=== PATIENT | female | born 1940 | race Caucasian/White ===

== ENCOUNTER 2018-04-09 07:15 | Inpatient (IN) | payer MEDICARE, MEDICAID ==
[2018-04-03 15:09] LABS: BASOPHILS % (AUTO) 0.5 % (0-1); EOSINOPHILS # (AUTO) 0.1 X10'3 (0-0.9); EOSINOPHILS % (AUTO) 1.1 % (0-6); LYMPHOCYTES # (AUTO) 2.3 X10'3 (1.1-4.8); LYMPHOCYTES % (AUTO) 27.1 % (21-51); MEAN CORPUSCULAR HEMOGLOBIN 29.4 PG (27.0-31.0); MEAN CORPUSCULAR HGB CONC 33.4 % (33.0-36.5); MEAN CORPUSCULAR VOLUME 88.2 FL (78-98); MEAN PLATELET VOLUME 8.8 FL (7.4-10.4); MONOCYTES # (AUTO) 0.7 X10'3 (0-0.9); MONOCYTES % (AUTO) 8.2 % (2-12); NEUTROPHILS # (AUTO) 5.5 X10'3 (1.8-7.7); NEUTROPHILS % (AUTO) 63.1 % (42-75); PRE OP HEMATOCRIT 40.1 % (35.0-45.0); PRE OP HEMOGLOBIN 13.4 g/dL (12.0-16.0); PRE OP PLATELET COUNT 311 X10'3 (140-440); RED BLOOD COUNT 4.55 X10'6 (4.20-5.60); RED CELL DISTRIBUTION WIDTH 13.8 % (11.5-14.5)
[2018-04-03 15:13] LABS: PRE OP INR 1.1 INR; PRE OP PROTIME 10.9 SECONDS (9.0-12.0)
[2018-04-03 15:14] LABS: CLARITY,URINE CLEAR (Clear); COLOR,URINE YELLOW (Yellow); GLUCOSE, URINE NEGATIVE (Neg); KETONES,URINE NEGATIVE (Neg); LEUKOCYTE ESTERASE ,URINE NEGATIVE (Neg); NITRITES, URINE NEGATIVE (Neg); OCCULT BLOOD,URINE NEGATIVE (Neg); PH,URINE 5.5 (4.8-8.0); PROTEIN,URINE NEGATIVE (Neg); UROBILINOGEN,URINE 0.2 E.U/dL (0.2-1.0)
[2018-04-03 15:18] LABS: ALBUMIN 3.7 G/DL (3.4-5.0); ALBUMIN/GLOBULIN RATIO 0.9 (1.1-1.5); ALKALINE PHOSPHATASE 70 IU/L (46-116); BLOOD UREA NITROGEN 17 MG/DL (7-18); CALCIUM 8.8 MG/DL (8.5-10.1); CHLORIDE 101 MMOL/L (99-107); CREATININE 0.85 MG/DL (0.40-0.90); PRE OP ALT 22 U/L (30-65); PRE OP ANION GAP 11 (8-16); PRE OP AST 15 U/L (10-37); PRE OP BILIRUB, TOTAL 0.4 MG/DL (0.0-1.0); PRE OP GLUCOSE 110 MG/DL (70-104); PRE OP POTASSIUM 3.8 MMOL/L (3.4-5.1); PRE OP SODIUM 138 MMOL/L (135-145); TOTAL CARBON DIOXIDE 26.5 MMOL/L (24-32); TOTAL PROTEIN 7.8 G/DL (6.4-8.2); eGFR 65 ML/MIN
[2018-04-03 15:20] LABS: UA COLLECTION TYPE CLN CATCH MIDSTREAM
[2018-04-09] VITALS (19 sets, daily range): BP systolic 77–142; BP diastolic 42–83
[~2018-04-09] VITALS: Ht 165.1 cm; Wt 74.0 kg
[~2018-04-09 07:15] MED LIST: ACET-2119 PO; ALPH100C PO; ASCO1CAP4 PO; ASPI-1265 PO; BETA1TAB18 PO; BIOT10004 PEG; CALCIUM PO; CHOL10002 PO; DILT180C66 PO; FLAX100015 PO; GINK60TA2 PO; GLUC-133 PO; HYDROcodone/acetaminophen 10/325mg tab PO PRN; HYDROmorphone 1 mg/ml syringe IV PRN; IBUP-1984 PO; MAGN400C PO; MULT-933 PO; POTASSIUM PO; TURMERIC/CURCUMIN PO; VANCOMYCIN INJ 1000 MG in NORMAL SALINE 250ml IV.SOLN IV ONE; VITA100D6 PO; VITA100T PO; [UNRECOGNIZED DRUG - CODE] PO; [UNRECOGNIZED DRUG - OTHER] EACHEYE; [UNRECOGNIZED DRUG - OTHER] PO; acetaminophen 325mg tablet PO ONE; acetaminophen 325mg tablet PO PRN; bisacodyl 10mg suppository rectal RC PRN; cefazolin/dext.iso 2gm/100 ML IV ONE; celeCOXIB 100mg capsule PO ONE; diphenhydrAMINE 25mg capsule PO PRN; famotidine 20mg tablet PO ONE; gabapentin 300mg capsule PO ONE; magnesium hydroxide 30ml (MOM) UD suspension PO PRN; metoclopramide 5 mg/ml inj IV ONE; ondansetron/PF 4mg/2ml inj IV PRN; oxyCODONE SR 10mg (sust. release) tab -2 tabs (20mg) PO ONE; ringers solution, lacted 1,000 ML IV SCH; tranexamic acid inj. 1,000 MG in normal saline 100ml IV soln 90 ML IV ONE
[2018-04-09] MEDS ORDERED: tetracaine 1% (10mg/ml) pres. free inj. ONE (08:42)
[2018-04-09] MEDS ORDERED: DILT60TA41 PO (09:34)
[2018-04-09] MEDS ORDERED: ROPIVAcaine inj 250 MG, ketorolac tromethamine inj. 15 MG, CloNIDine/PF inj 80 MCG, epi... IU ONE ×5 (10:00)
[2018-04-09] MEDS ORDERED: vancomycin 1,000mg inj ONE (10:02)
[2018-04-09] MEDS ORDERED: fentaNYL/PF 50MCG/1 ML 2ML syringe ONE (10:08)
[2018-04-09] MEDS ORDERED: MIDAZolam 1mg/ml 10ml vial ONE (10:08)
[2018-04-09] MEDS ORDERED: morphine /PF 1mg/ml 10ml inj. ONE (10:09)
[2018-04-09] MEDS ORDERED: propofol inj 20 ML IV ONE (10:32)
[2018-04-09] MEDS ORDERED: LIDOcaine 2% (20mg/ml) 5ml vial ONE (10:33)
[2018-04-09] MEDS ORDERED: ringers solution, lacted 1,000 ML IV SCH (10:59)
[2018-04-09] MEDS ORDERED: hydrALAZINE 20mg/ml inj. IV PRN (11:00)
[2018-04-09] MEDS ORDERED: labetalol 20mg/4ml (5mg/ml) syringe IV PRN (11:00)
[2018-04-09] MEDS ORDERED: ondansetron/PF 4mg/2ml inj IV PRN ×2 (11:00→11:05)
[2018-04-09] MEDS ORDERED: fentaNYL/PF 50MCG/1 ML 2ML syringe IV PRN ×2 (11:00)
[2018-04-09] MEDS ORDERED: morphine 4 MG/ML inj SYRINge IV PRN ×2 (11:00)
[2018-04-09] MEDS ORDERED: diphenhydrAMINE 50 mg/ml inj IV PRN (11:05)
[2018-04-09] MEDS ORDERED: ePHEDrine 50MG/ML INJ. IV ONE (11:50)
[2018-04-09] MEDS ORDERED: ePHEDrine 50MG/ML INJ. ONE (12:04)
[2018-04-09] MEDS ORDERED: diltiazem 30mg tablet PO PRN (13:00)
[2018-04-09] MEDS: potassium cl 20mEq in 1/2 NS 1,000 ML IV SCH (14:38)
[2018-04-09] MEDS: diphenhydrAMINE 25mg capsule PO PRN (16:32)
[2018-04-09] MEDS: ceFAZolin 1GM/D5W- ADD-VANTAGE 50 ML IV SCH ×2 (16:32→23:58)
[2018-04-09] MEDS ORDERED: tranexamic acid inj. 1,000 MG in normal saline 100ml IV soln 100 ML IV ONE (17:30)
[2018-04-09] MEDS ORDERED: proCHLORperazine 10 MG/2 ml inj IV PRN (18:25)
[2018-04-09] MEDS ORDERED: vancomycin/NS 1 GM ADD-VANTAGE 250 ML IV SCH (20:00)
[2018-04-09] MEDS: gabapentin 300mg capsule PO SCH (20:56)
[2018-04-09] MEDS: sennosides 8.6mg tablet PO SCH (20:56)
[2018-04-09] MEDS: ascorbic acid 500mg tablet PO SCH (20:56)
[2018-04-10 01:35] VITALS: BP 101/49
[2018-04-10] MEDS: potassium cl 20mEq in 1/2 NS 1,000 ML IV SCH ×4 (01:36→19:54)
[2018-04-10] MEDS: HYDROcodone/acetaminophen 10/325mg tab PO PRN ×4 (05:25→19:54)
[2018-04-10] MEDS: diphenhydrAMINE 25mg capsule PO PRN ×3 (05:27→21:10)
[2018-04-10 05:46] LABS: BASOPHILS % (AUTO) 0.4 % (0-1); EOSINOPHILS % (AUTO) 0.5 % (0-6); HEMATOCRIT 32.3 % (35.0-45.0); HEMOGLOBIN 11.1 g/dl (12.0-16.0); LYMPHOCYTES # (AUTO) 2.1 X10'3 (1.1-4.8); LYMPHOCYTES % (AUTO) 24.8 % (21-51); MEAN CORPUSCULAR HEMOGLOBIN 30.5 PG (27.0-31.0); MEAN CORPUSCULAR HGB CONC 34.3 % (33.0-36.5); MEAN PLATELET VOLUME 8.5 FL (7.4-10.4); MONOCYTES # (AUTO) 0.9 X10'3 (0-0.9); MONOCYTES % (AUTO) 10.2 % (2-12); NEUTROPHILS # (AUTO) 5.6 X10'3 (1.8-7.7); NEUTROPHILS % (AUTO) 64.1 % (42-75); PLATELET COUNT 225 X10'3 (140-440); RED BLOOD COUNT 3.63 X10'6 (4.20-5.60); RED CELL DISTRIBUTION WIDTH 13.6 % (11.5-14.5); WHITE BLOOD COUNT 8.6 X10'3 (4.5-11.0)
[2018-04-10 06:00] VITALS: BP 125/72
[2018-04-10 06:15] LABS: ANION GAP 5 (8-16); CHLORIDE 107 MMOL/L (99-107); POTASSIUM 4.7 MMOL/L (3.5-5.1); SODIUM 140 MMOL/L (135-145); TOTAL CARBON DIOXIDE 27.9 MMOL/L (24-32)
[2018-04-10] MEDS: aspirin 325mg tablet PO SCH (08:24)
[2018-04-10] MEDS: multivitamins, therapeutics tablet PO SCH (08:25)
[2018-04-10] MEDS: gabapentin 300mg capsule PO SCH ×3 (08:25→21:03)
[2018-04-10] MEDS: ascorbic acid 500mg tablet PO SCH ×2 (08:25→19:54)
[2018-04-10 09:49] VITALS: BP 129/46
[2018-04-10 17:00] VITALS: BP 132/64
[2018-04-10] MEDS: sennosides 8.6mg tablet PO SCH (21:03)
[2018-04-10 22:00] VITALS: BP 118/46
[2018-04-11] MEDS: HYDROcodone/acetaminophen 10/325mg tab PO PRN ×6 (00:33→21:23)
[2018-04-11 06:00] VITALS: BP 134/66
[2018-04-11 07:25] LABS: BASOPHILS # (AUTO) 0.1 X10'3 (0-0.2); BASOPHILS % (AUTO) 0.9 % (0-1); EOSINOPHILS # (AUTO) 0.2 X10'3 (0-0.9); EOSINOPHILS % (AUTO) 1.7 % (0-6); HEMOGLOBIN 11.8 g/dl (12.0-16.0); LYMPHOCYTES # (AUTO) 1.5 X10'3 (1.1-4.8); LYMPHOCYTES % (AUTO) 13.5 % (21-51); MEAN CORPUSCULAR HGB CONC 34.7 % (33.0-36.5); MEAN CORPUSCULAR VOLUME 89.2 FL (78-98); MEAN PLATELET VOLUME 8.8 FL (7.4-10.4); MONOCYTES # (AUTO) 1.4 X10'3 (0-0.9); MONOCYTES % (AUTO) 12.8 % (2-12); NEUTROPHILS # (AUTO) 7.8 X10'3 (1.8-7.7); NEUTROPHILS % (AUTO) 71.1 % (42-75); PLATELET COUNT 133 X10'3 (140-440); RED BLOOD COUNT 3.81 X10'6 (4.20-5.60); RED CELL DISTRIBUTION WIDTH 13.5 % (11.5-14.5)
[2018-04-11] MEDS: gabapentin 300mg capsule PO SCH ×3 (08:58→20:23)
[2018-04-11] MEDS: aspirin 325mg tablet PO SCH (08:58)
[2018-04-11] MEDS: multivitamins, therapeutics tablet PO SCH (08:58)
[2018-04-11] MEDS: ascorbic acid 500mg tablet PO SCH ×2 (08:58→20:23)
[2018-04-11 10:00] VITALS: BP 126/52
[2018-04-11 17:00] VITALS: BP 147/64
[2018-04-11] MEDS: sennosides 8.6mg tablet PO SCH (20:23)
[2018-04-11 22:00] VITALS: BP 141/57
[2018-04-12] MEDS: HYDROcodone/acetaminophen 10/325mg tab PO PRN ×4 (01:10→14:28)
[2018-04-12 05:21] LABS: BASOPHILS % (AUTO) 0.2 % (0-1); EOSINOPHILS # (AUTO) 0.3 X10'3 (0-0.9); EOSINOPHILS % (AUTO) 2.6 % (0-6); HEMATOCRIT 35.4 % (35.0-45.0); HEMOGLOBIN 11.6 g/dl (12.0-16.0); LYMPHOCYTES # (AUTO) 2.5 X10'3 (1.1-4.8); LYMPHOCYTES % (AUTO) 25.1 % (21-51); MEAN CORPUSCULAR HEMOGLOBIN 29.3 PG (27.0-31.0); MEAN CORPUSCULAR HGB CONC 32.6 % (33.0-36.5); MEAN CORPUSCULAR VOLUME 89.7 FL (78-98); MONOCYTES # (AUTO) 1.1 X10'3 (0-0.9); MONOCYTES % (AUTO) 10.9 % (2-12); NEUTROPHILS # (AUTO) 6.2 X10'3 (1.8-7.7); NEUTROPHILS % (AUTO) 61.2 % (42-75); PLATELET COUNT 258 X10'3 (140-440); RED BLOOD COUNT 3.95 X10'6 (4.20-5.60); RED CELL DISTRIBUTION WIDTH 14.1 % (11.5-14.5); WHITE BLOOD COUNT 10.1 X10'3 (4.5-11.0)
[2018-04-12 06:00] VITALS: BP 134/57
[2018-04-12] MEDS: aspirin 325mg tablet PO SCH (08:04)
[2018-04-12] MEDS: gabapentin 300mg capsule PO SCH ×2 (08:04→13:56)
[2018-04-12] MEDS: ascorbic acid 500mg tablet PO SCH (08:04)
[2018-04-12] MEDS: multivitamins, therapeutics tablet PO SCH (08:04)
[2018-04-12 10:00] VITALS: BP 134/57
== END 2018-04-12 14:40 | disposition home or self-care (01) | DRG 470 ==
LOC: PAS IN 07:15 → EDSTATUS 09:30 → ORTHO 4S 12:55
PROVIDERS: ADMIT Orthopaedic Surgery; ATTEND Orthopaedic Surgery
PROC: 0SR906Z Replacement of Right Hip Joint with Oxidized Zirconium on Polyethylene Synthetic Substitute, Open Approach (ICD-10-PCS; principal; 2018-04-09 10:06)
DX: M16.11 Unilateral primary osteoarthritis, right hip (principal); D62 Acute posthemorrhagic anemia; Z96.642 Presence of left artificial hip joint; I48.2 Chronic atrial fibrillation; Z72.89 Other problems related to lifestyle; Z79.82 Long term (current) use of aspirin; Z79.899 Other long term (current) drug therapy
CPT/HCPCS: 36415; 71046; 72170; 80051; 80053; 81003; 85025; 85610; 85730; 86885; 86900; 86901; 87070; 97110; 97116; 97161; 97530; A4615; A6255; A7000; C1758; C1776; J0171; J0690; J0735; J1885; J2001; J2250; J2274; J2405; J2704; J2765; J2795; J3010; J3370; J3490; J7030; J7120; Q0163

== ENCOUNTER 2020-08-09 14:03 | Outpatient (CLI) | payer MEDICARE, OTHER ==
[~2020-08-09 14:03] MED LIST changes: +CHROMIUM PICO200 MCG PO; -DILT180C66 PO; +DILT60TA41 PO; -HYDROcodone/acetaminophen 10/325mg tab PO PRN; -HYDROmorphone 1 mg/ml syringe IV PRN; -IBUP-1984 PO; -VANCOMYCIN INJ 1000 MG in NORMAL SALINE 250ml IV.SOLN IV ONE; -[UNRECOGNIZED DRUG - CODE] PO; -acetaminophen 325mg tablet PO ONE; -acetaminophen 325mg tablet PO PRN; -bisacodyl 10mg suppository rectal RC PRN; -cefazolin/dext.iso 2gm/100 ML IV ONE; -celeCOXIB 100mg capsule PO ONE; -diphenhydrAMINE 25mg capsule PO PRN; -famotidine 20mg tablet PO ONE; -gabapentin 300mg capsule PO ONE; -magnesium hydroxide 30ml (MOM) UD suspension PO PRN; -metoclopramide 5 mg/ml inj IV ONE; -ondansetron/PF 4mg/2ml inj IV PRN; -oxyCODONE SR 10mg (sust. release) tab -2 tabs (20mg) PO ONE; -ringers solution, lacted 1,000 ML IV SCH; -tranexamic acid inj. 1,000 MG in normal saline 100ml IV soln 90 ML IV ONE
== END 2020-08-09 23:59 | disposition home or self-care (01) ==
LOC: RAD 14:03
DX: K21.9 Gastro-esophageal reflux disease without esophagitis (principal); R13.14 Dysphagia, pharyngoesophageal phase
CPT/HCPCS: 74230

== ENCOUNTER → 2023-12-25 | Outpatient (CLI) | payer MEDICARE, MEDICAID | END | disposition home or self-care (01) | LOC: RAD 10:43 | PROVIDERS: ATTEND Nurse Practitioner Primary Care | DX: R06.09 Other forms of dyspnea (principal) | CPT/HCPCS: 71046 ==

== ENCOUNTER 2024-01-07 10:20 | Outpatient (CLI) | payer MEDICARE, MEDICAID ==
[~2024-01-07] VITALS: Ht 162.6 cm; Wt 70.3 kg
[2024-01-07] MEDS: albuterol 2.5 MG/3 ML nebule NEB ONE (11:19)
[2024-01-07 11:20] VITALS: PULSE 70; RESP 16; O2SAT 98
[2024-01-07 11:39] VITALS: PULSE 69; RESP 16
== END 2024-01-07 23:59 | disposition home or self-care (01) ==
LOC: RT 10:20
PROVIDERS: ATTEND Nurse Practitioner Primary Care
DX: R06.09 Other forms of dyspnea (principal)
CPT/HCPCS: 94060; 94760; Z7610